=== PATIENT | male | born 1985 | race Hispanic/Latino ===

== ENCOUNTER 2017-11-13 19:06 | Emergency (ER) | payer OTHER ==
[2017-11-13 19:06] VITALS: BMI 24.4
[2017-11-13 19:23] VITALS: BP 152/100; PULSE 92; RESP 20; TEMP 98.2; O2SAT 99
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
--- NOTE | 2017-11-14 07:49 | RAD ---
PROCEDURE: Radiographs of the Right Shoulder HISTORY: possible shoulder dislocation COMPARISON: No prior. FINDINGS: BONES: An anterior inferior glenohumeral dislocation is appreciated without defined fracture evident. Acromioclavicular appears intact JOINTS: As above. SOFT TISSUES: Normal. OTHER FINDINGS: None. IMPRESSION: Anterior inferior glenohumeral dislocation. No definite fracture appreciated.
--- NOTE | 2017-11-14 07:53 | RAD ---
PROCEDURE: Radiographs of the Right Shoulder HISTORY: post relocation of r shoulder COMPARISON: Right shoulder radiographs 11/13/2017 7:24 p.m.. FINDINGS: BONES: Adequate reduction has been achieved from prior dislocation. Degenerative cystic changes are appreciated at the inferior glenoid rim likely related to potential prior dislocations in the past. JOINTS: The acromioclavicular joint appears normal. Glenohumeral joint as discussed above. SOFT TISSUES: Normal. OTHER FINDINGS: None. IMPRESSION: Adequate reduction achieved at the right glenohumeral joint. Advanced degenerative changes seen at the glenoid rim which can be better defined by CT or MRI if clinically warranted.
== END 2017-11-13 20:58 | disposition home or self-care (01) ==
LOC: H.ER 19:06
DX: S43.015A Anterior dislocation of left humerus, initial encounter (principal); X50.9XXA Other and unspecified overexertion or strenuous movements or postures, initial encounter; Y92.89 Other specified places as the place of occurrence of the external cause
CPT/HCPCS: 23655; 73030; 96372; 99283; J2270